=== PATIENT | female | born 1975 | race Asian ===

== ENCOUNTER → 2020-08-13 | Outpatient (CLI) | payer OTHER ==
[2020-08-13 09:05] LABS: ABSOLUTE NEUTROPHILS 2.8 thou/uL (1.4-8.2); BASOPHILS 0.9 % (0.0-2.0); EOSINOPHILS 5.2 % (0.0-3.0); HEMATOCRIT 42.1 % (37.0-47.0); HEMOGLOBIN 13.9 gm/dL (12.0-15.0); LYMPHOCYTES 22.4 % (24.0-44.0); MCH 28.3 pg (26.0-34.0); MCV 85.8 fL (80.0-100.0); MONOCYTES 9.1 % (1.0-8.0); PLATELET COUNT 356 thou/uL (150-400); POLYS 62.4 % (36.0-66.0); RBC 4.91 mil/uL (4.20-5.00); RDW 14.8 % (10.5-14.5); WBC 4.4 thou/uL (4.0-11.0)
[2020-08-13 09:20] LABS: ALBUMIN 4.3 g/dL (3.4-5.0); ANION GAP 9 mmol/L (7-16); BUN 14 mg/dL (7-18); CALCIUM 9.4 mg/dL (8.5-10.1); CHLORIDE 101 mmol/L (98-107); CHOLESTEROL 224 mg/dL (<200); CO2 29 mmol/L (21-32); CREATININE 0.9 mg/dL (0.6-1.0); GLUCOSE 93 mg/dL (74-106); HDL CHOLESTEROL 62 mg/dL (>40); LDL CHOLESTEROL 138 mg/dL (<100); POTASSIUM 4.1 mmol/L (3.5-5.1); SGOT 18 U/L (15-37); SGPT 27 U/L (30-65); SODIUM 139 mmol/L (136-145); TC:HDL 3.6 Ratio (Not establshd); TOTAL BILIRUBIN 0.3 mg/dL (0.2-1.0); TOTAL PROTEIN 8.1 g/dL (6.4-8.2); TRIGLYCERIDE 120 mg/dL (<150); VLDL 24 mg/dL (<40)
[2020-08-13 23:06] LABS: GLYCOHEMOGLOBIN (HGB A1C) 5.6 % (4.8-5.6)
== END ==
LOC: LABMALL 08:03
PROVIDERS: ATTEND Family Medicine
DX: Z01.84 Encounter for antibody response examination (principal); E78.5 Hyperlipidemia, unspecified; E55.9 Vitamin D deficiency, unspecified; R73.9 Hyperglycemia, unspecified

== ENCOUNTER → 2020-09-04 | Outpatient (CLI) | payer OTHER | LOC: LAB 13:19 | DX: Z20.828 Contact with and (suspected) exposure to other viral communicable diseases (principal) ==

== ENCOUNTER → 2020-10-25 | Outpatient (CLI) | payer OTHER ==
[2020-10-25 10:22] LABS: CHOLESTEROL 233 mg/dL (<200); HDL CHOLESTEROL 64 mg/dL (>40); LDL CHOLESTEROL 154 mg/dL (<100); TC:HDL 3.6 Ratio (Not establshd); TRIGLYCERIDE 79 mg/dL (<150); VLDL 16 mg/dL (<40)
== END ==
LOC: LAB 09:30
PROVIDERS: ATTEND Family Medicine
DX: E78.5 Hyperlipidemia, unspecified (principal); E55.9 Vitamin D deficiency, unspecified

== ENCOUNTER → 2020-11-29 | Outpatient (CLI) | payer OTHER ==
[~2020-11-29] MED LIST: ADIPEX-P37.5 M1 PO; AIRBORNE EFFER1 EAC1 PO; BENADRYL25 MG PO; CLINDAGEL75 ML TOP; COLACE100 MG PO; EXCEDRIN CAPLE1 EACH PO; FLEXERIL PO; NAPROXEN CR500 MG PO; OMEPRAZOLE 20 M20 M1 PO; SALONPAS1 EACH TOP; SPIRONOLACTONE100 M1 PO; TRAMADOL 50 MG50 MG PO; TRETINOIN10 MG PO; TRIAMCINOLONE 080 G3 TOP; TUMS SMOOTHIES300 MG PO; VITAMIN D3100 GM PO; ZYRTEC10 M4 PO
== END ==
LOC: MRI 10:38
PROVIDERS: ATTEND Family Medicine
DX: M51.17 Intervertebral disc disorders with radiculopathy, lumbosacral region (principal); M48.061 Spinal stenosis, lumbar region without neurogenic claudication

== ENCOUNTER → 2020-12-01 | Outpatient (CLI) | payer OTHER ==
[~2020-12-01] VITALS: Ht 154.9 cm; Wt 53.5 kg
--- NOTE | ~2020-12-01 | HPC ---
[facility] [place] [address] PAIN MANAGEMENT CONSULTATION Name: JAYLENE HUTTON Room #: REG [facility]#: [id number] Admission: 12/01/20 Attend Phys: Bernard Hernandez DO Discharge: Date of : 75 Report #: [id number] THIS REPORT FOR: cc: Pily Snell MD, Nora P. MD Johnson, James E. DO ~ DATE OF SERVICE: 12/01/2020 CHIEF COMPLAINT: Low back pain, left lower extremity pain. HISTORY OF PRESENT ILLNESS: As you know, the patient is a 45-year-old female with acute onset of low back pain, left lower extremity pain that began on November 21, 2020. The patient indicates no injury or trauma. She apparently has had symptoms like this prior and received injection and physical therapy, which resolved symptoms over a 3-month period. This was apparently some years ago. The patient states that since the pain began, she has been unable to ambulate or go about daily activities. States her pain is intense enough that she has had to discontinue work. She has been referred to our service after undergoing MRI of the lumbar spine, which shows normal findings. The patient reports today pain is constant with brief intermittent, sharp, stabbing and shooting sensations. She describes the pain as shooting, aching, heavy and sharp when describing symptoms. She places current pain score 5/10, daily average anywhere from 3-10/10. The worst pain has been is 10/10. The patient states the pain is exacerbated with movement, standing, and sitting for any length of time, improves with lying down with both knees in a full flexed position as well as the hips in flexed position. She has been referred to our service to discuss treatment options for back pain and left leg pain. PAST MEDICAL HISTORY: 1. Gastroesophageal reflux disease. 2. Seasonal allergies. 3. Osteoarthritis. PAST SURGICAL HISTORY: 1. Bilateral tubal ligation. 2. Orange teeth extractions. 3. PRK, left eye. 4. PRK, right eye. SOCIAL HISTORY: The patient denies tobacco use. Denies IV or illicit drug use. Admits to occasional glass of wine. She is employed as a registered nurse, working at [employer]. She has been off work since her pain began. She is not receiving workmen's compensation, nor is she trying to obtain disability benefits. She reports no ongoing litigation in regards to pain. She is unaccompanied at today's visit. [address] [address] PAIN MANAGEMENT CONSULTATION Name: JAYLENE HUTTON Room #: REG [facility].#: [id number] Admission: 12/01/20 Attend Phys: Bernard Hernandez DO Discharge: Date of : 75 Report #: [id number] REVIEW OF SYSTEMS: Positive for weight change, weakness, headaches, wearing corrective eyewear, blurred and double vision, chronic sinus problems with rhinitis, intermittent nosebleeds, loss of appetite, constipation, rectal bleeding, peptic ulcer disease, frequent and recurrent headaches, varicose veins, numbness and tingling sensations, and bleeding and bruising tendencies. All other review of systems negative per 12-point review of systems other than those listed in history of present illness. Pain impact score 49/70 indicating severe interference of daily activities secondary to pain. IMAGING: MRI of the lumbar spine obtained on 11/29/2020 shows only early degenerative disk changes at L3-L4 and L4-L5, no significant central canal or neural foraminal stenosis or facet arthropathy. PHYSICAL EXAMINATION: VITAL SIGNS: Blood pressure 113/85, pulse 118, respiratory rate 14 and unlabored. The patient is 98% on room air. Height 5 feet 1 inch tall, weight 118 pounds, BMI calculated 22.3. GENERAL: Well-developed, well-nourished, well-hydrated 45-year-old female, who appears stated age, placing current pain score 5/10. HEENT: Normocephalic, atraumatic. Pupils equal, round, and reactive to light. Extraocular muscles are intact. NEUROLOGIC: Speech is fluent. The patient is wearing a mask in compliance with COVID-19 regulations. LUNGS: Appear clear. She has no appreciable rhonchi or rales. No cough. EXTREMITIES: Show no clubbing, no cyanosis, and no edema. MUSCULOSKELETAL: The patient does have palpatory tenderness over the left sacroiliac joint. Deep palpation in the area causes intensification of pain. The patient does have a leg-length discrepancy of approximately one-quarter of an inch with right leg longer than left. Compression of the ASIS on the right causes no change in pain. Compression on the ASIS on the left causes intensification of pain over the SI joint. The patient is intact to light touch from L1 through S2 dermatomes. Seated straight leg raising negative. Supine straight leg raising negative. Lacie's test is positive only for SI joint dysfunction on the left, negative right. Ankle clonus negative. Babinski is negative. Muscle bulk and tone is symmetrical, 5/5 in the lower extremities. There is some give-way strength noted with hip flexion and knee extension on the left due to pain generation, but muscle contraction is 5/5. Deep tendon reflexes equal and symmetrical at patella and Achilles. Gait is antalgic favoring the left lower extremity. ASSESSMENT: 1. Left sacroiliac joint pain. 2. Myofascial pain. [facility] [address] [place] [address] PAIN MANAGEMENT CONSULTATION Name: HUTTONJAYLENE MCMAHON LESLEY Room #: REG [facility]#: [id number] Admission: 12/01/20 Attend Phys: Bernard Hernandez DO Discharge: Date of : 75 Report #: [id number] PLAN: Based on today's physical exam, the history the patient has provided, the description the patient uses in regards to pain as well as the location of symptoms, the likely source of the patient's symptoms is the left sacroiliac joint. Her pain distribution matches exactly the distribution of an SI joint dysfunction with radiation from the SI joint to the posterolateral thigh with some sensations that radiate towards the foot in a nondermatomal distribution consistent with SI joint dysfunction. We reviewed with the patient the findings of her MRI, which show normal study for a 45-year-old female. There is no neural foraminal stenosis and no facet arthropathy. Given the normal MRI of the lumbar spine, this would further confirm SI joint dysfunction as the source of symptoms. We discussed with the patient the treatment options for SI joint pain today. The following was discussed with the patient. 1. We discussed physical therapy, stretching exercises, and manipulation of the pelvis and SI joint for improved analgesic benefit. We discussed medication management with suggestion of treatment including nonsteroidal anti-inflammatories on a consistent basis along with low-dose pain relievers. We discussed intra-articular SI joint injection and ultimately surgical fusion of the SI joint. After reviewing the risks and benefits of all proposed treatment options, the patient chose to move forward with conservative treatment and undergo pelvic manipulation and SI joint treatments with physical therapy. 2. The patient will be sent for physical therapy. She will begin at least twice to three times a week for approximately 6 weeks. She was given the names of 2 different facilities that provide sacroiliac joint manipulation. We contacted the physical therapy group here with [facility] and they do not offer this treatment option, which in this patient's case needs to be directed directly at the SI joint and thus needs to be referred to an outside facility. The patient was given the referral information to these 2 facilities that perform SI joint and pelvic manipulation to address sacroiliac joint pain. 3. We made no changes in the patient's medication management. We recommend that she continue current medical therapy being provided through her prescribing physician. We will suggest changes, if necessary, to address the ongoing issues if symptoms do not resolve quickly with more conservative treatment. 4. We will begin the process of authorization for the patient to undergo an SI joint injection if she is not seeing pain improvement with the sacroiliac joint manipulation recommended above. Authorization could take 4-7 working days. We will begin this process immediately. Once we have the authorization, we will contact the patient. If she wishes to undergo SI joint injection, we will be more than willing to provide that injection with the understanding that it is a treatment to be in conjunction with SI joint manipulation and treatment for the pelvic unleveling. We will begin the process immediately and contact the patient once this authorization has been obtained. 5. We wish to thank the referring physician, Dr. Pily Snell, for the opportunity to see this patient in consultation. We will keep you apprised of response to treatment as we address sacroiliac joint pain on the left side. [facility] [address] [place] [address] PAIN MANAGEMENT CONSULTATION Name: JAYLENE HUTTON Room #: REG [facility] Mayra#: [id number] Admission: 12/01/20 Attend Phys: Bernard Hernandez DO Discharge: Date of : 75 Report #: [id number] Again, we wish to thank you for the opportunity to see the patient in consultation. By: [id number] [id number] Bernard Hernandez DO /nt
[2020-12-01 13:16] VITALS: BP 113/85
--- NOTE | 2020-12-01 13:36 | NUR ---
Pain Clinic Assessment: 1. History of Osteoarthritis: NO History of Rheumatoid Arthritis: NO 2. Height: 5 ft. 1 in. 154.9 cm. Weight: 118.0 lb. oz. 53.524 kg. Patient's BMI: 22.3 3. Vital Signs: BP: 113/85 Pulse: 118 Resp: 14 Temp: 02 Sat: 98 ECG Mon: 4. Pain Intensity: 5 5. Fall Risk: Dizziness: Needs help standing or walking: Fallen in the last 3 months: Fall risk comments: 6. Patient on Blood Thinner: None 7. History of Hypertension: N 8. Opioid Therapy greater than 6 weeks: N Opiate Contract Signed: 9. Risk Assessment Tool Provided: 10. Functional Assessment Tool: 11. Recreational Drug Use: Never Drug Type: Tobacco Use: Never Smoker Tobacco Type: Amount or Packs/day: How Many Years: Alcohol Use: Yes Frequency: Weekly Quant:
== END ==
LOC: PAIN 06:53
PROVIDERS: ATTEND Anesthesiology Pain Medicine
DX: M54.5 Low back pain (principal); M79.605 Pain in left leg; M79.10 Myalgia, unspecified site

== ENCOUNTER → 2021-01-05 | Outpatient (CLI) | payer OTHER ==
[~2021-01-05] VITALS: Ht 154.9 cm; Wt 54.0 kg
[~2021-01-05] MED LIST changes: +GABAPENTIN100 MG PO; +SKELAXIN 800 M800 M1 PO
[2021-01-05 12:54] VITALS: BP 123/54
--- NOTE | 2021-01-05 13:04 | NUR ---
Pain Clinic Assessment: 1. History of Osteoarthritis: NO History of Rheumatoid Arthritis: NO 2. Height: 5 ft. 1 in. 154.9 cm. Weight: 119.0 lb. oz. 53.978 kg. Patient's BMI: 22.5 3. Vital Signs: BP: 123/54 Pulse: 110 Resp: 14 Temp: 02 Sat: 100 ECG Mon: 4. Pain Intensity: 6 5. Fall Risk: Dizziness: N Needs help standing or walking: N Fallen in the last 3 months: N Fall risk comments: 6. Patient on Blood Thinner: None 7. History of Hypertension: N 8. Opioid Therapy greater than 6 weeks: N Opiate Contract Signed: 9. Risk Assessment Tool Provided: 10. Functional Assessment Tool: 11. Recreational Drug Use: Never Drug Type: Tobacco Use: Never Smoker Tobacco Type: Amount or Packs/day: How Many Years: Alcohol Use: Yes Frequency: Quant:
--- NOTE | 2021-01-11 08:45 | HPC ---
[facility] [place] [address] [address] [place] [address] PAIN MANAGEMENT CONSULTATION Name: JAYLENE HUTTON Room #: REG [facility]#: [id number] Admission: 01/05/21 Attend Phys: Bernard Hernandez DO Discharge: Date of : 75 Report #: [id number] THIS REPORT FOR: cc: Pily Snell MD, Nora P. MD Johnson, James E. DO ~ DATE OF SERVICE: 01/05/2021 CHIEF COMPLAINT: Low back pain, left buttock and posterolateral thigh pain. HISTORY OF PRESENT ILLNESS: As you know, the patient is a 45-year-old female with acute onset of low back pain, left lower extremity pain without paresthesias that began 11/21/2020. She denies any specific injury or trauma. She was seen in consultation per the request of her primary care physician, Dr. Pily Snell. On 12/01/2020, diagnosed with left sacroiliac joint pain and established today's appointment to undergo a left SI joint injection under fluoroscopic guidance. We have received authorization through the patient's third alliance party payer to undergo a left SI joint injection to address ongoing pain. The patient returns today with a pain level of 6/10. Pain is exacerbated with standing and sitting, improves with rest and relaxation. She returns today for the first in series of left SI joint injections under fluoroscopic guidance. ALLERGIES: SULFA AND SHELLFISH. CURRENT MEDICATIONS: See extensive list in chart. SOCIAL HISTORY: The patient denies tobacco use. Denies IV or illicit drug use. Admits to occasional alcohol. 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 IMAGING: No new imaging available. PHYSICAL EXAMINATION: VITAL SIGNS: Blood pressure 123/54, pulse 110, respiratory rate 14 and unlabored. The patient is 100% on room air. Height 5 feet 1 inch tall, weight 119 pounds, BMI calculated 22.5. GENERAL: Well-developed, well-nourished, well-hydrated 45-year-old female appearing stated age, pain is rated around 6/10. HEENT: Normocephalic, atraumatic. Pupils equal, round and reactive, the patient is wearing a mask in compliance with COVID-19 regulations. EXTREMITIES: Show no clubbing, no cyanosis, no edema. MUSCULOSKELETAL: The patient once again has significant palpatory tenderness over the left SI joint, negative on the right. Deep palpation of this area causes intensification of pain with the patient's distribution radiating down the leg in classic SI joint fashion. Seated straight leg raising is negative. Supine straight leg raising is negative. Lacie's test is positive only for SI [facility] [address] [place] [address] PAIN MANAGEMENT CONSULTATION Name: HUTTONJAYLENE LISANDRO LESLEY [id number] Admission: 01/05/21 Attend Phys: Bernard Hernandez DO Discharge: Date of : 75 Report #: [id number] joint dysfunction, negative for any intrinsic hip pathology. ASSESSMENT: 1. Left sacroiliac joint pain. 2. Myofascial pain. PLAN: 1. The patient has returned today in followup visit to undergo SI joint injection under fluoroscopic guidance. We have received authorization for the patient to undergo the procedure. The patient has been advised of the risks and the benefits of a left SI joint injection. These risks include but are not necessarily limited to bleeding, bruising, infection, worsening pain, no relief of pain, also risk of temporary or permanent muscle weakness, temporary or permanent nerve damage, possible paralysis, post-dural puncture headache and . The patient states understood and wished to proceed. 2. No medication changes made at today's visit. The patient will continue current medical therapy as prior prescribed. 3. We plan to see the patient back in followup visit in approximately 30 days. At that time, review the efficacy of today's left SI joint injection and determine if next in the series would be recommended. PROCEDURE NOTE DESCRIPTION OF PROCEDURE: Left sacroiliac joint injection under fluoroscopic guidance. After obtaining written consent, the patient was taken back to fluoroscopy suite, placed in prone position with pillow under abdomen to decrease lumbar lordosis. Skin overlying the gluteal sacral area on the left side was prepped and draped in aseptic fashion. A medial to lateral oblique projection allowed separation of the anterior and posterior branches of the joint space to be visualized. The skin and subcutaneous tissue overlying target site of injection was anesthetized with 3 mL of 1% lidocaine utilizing a 27-gauge 1-1/4 inch needle. A 22-gauge 3-1/2 inch spinal needle with bent tip was directed to the inferior aspect of the sacroiliac joint using a posterior approach. A "giving away" at the needle hub was noted once the dorsal sacroiliac and interosseous ligaments were engaged. Due to a contrast allergy, no contrast agent was used in today's procedure. After negative aspiration for heme and confirmation of needle position with lateral fluoroscopic imaging, 3 mL of a solution containing 1 mL 40 mg per mL, 40 mg total triamcinolone along with 2 mL bupivacaine 0.5% was injected slowly. Needle was retracted approximately half way, flushed with 1 mL of 1% lidocaine and removed. Sterile bandage placed over injection site. There were no new motor deficits present in the lower extremities following procedure. [facility] [address] [place] [address] PAIN MANAGEMENT CONSULTATION Name: JAYLENE HUTTON LISANDRONicole SUTTON [id number] Admission: 01/05/21 Attend Phys: Bernard Hernandez DO Discharge: Date of : 75 Report #: [id number] The patient tolerated procedure well, carefully escorted to recovery room in stable condition. No apparent complications. VAS before procedure rated at 6/10, VAS 10 minutes after procedure 0/10. After meeting our discharge criteria, the patient discharged home. <ELECTRONICALLY SIGNED> By: Bernard Hernandez DO 01/11/21 0845 [id number] 1804 Bernard Hernandez DO /nt
== END | disposition home or self-care (01) ==
LOC: PAIN 12-14 09:33
PROVIDERS: ATTEND Anesthesiology Pain Medicine
DX: M53.3 Sacrococcygeal disorders, not elsewhere classified (principal); M79.18 Myalgia, other site; Z98.890 Other specified postprocedural states; Z79.899 Other long term (current) drug therapy; Z88.2 Allergy status to sulfonamides; Z88.8 Allergy status to other drugs, medicaments and biological substances

== ENCOUNTER → 2021-02-08 | Outpatient (CLI) | payer OTHER ==
[~2021-02-08] VITALS: Ht 154.9 cm; Wt 52.2 kg
[~2021-02-08] MED LIST changes: +ALLEGRA-D 24 H1 EACH PO; +BETAMETHASONE D50 G2 TOP; +GRALISE300 MG PO
[2021-02-08 12:49] VITALS: BP 128/62
--- NOTE | 2021-02-08 13:02 | NUR ---
Pain Clinic Assessment: 1. History of Osteoarthritis: NO History of Rheumatoid Arthritis: NO 2. Height: 5 ft. 1 in. 154.9 cm. Weight: 115.0 lb. oz. 52.164 kg. Patient's BMI: 21.7 3. Vital Signs: BP: 128/62 Pulse: 118 Resp: 16 Temp: 02 Sat: 99 ECG Mon: 4. Pain Intensity: 6 5. Fall Risk: Dizziness: Needs help standing or walking: Fallen in the last 3 months: Fall risk comments: 6. Patient on Blood Thinner: None 7. History of Hypertension: N 8. Opioid Therapy greater than 6 weeks: N Opiate Contract Signed: 9. Risk Assessment Tool Provided: 10. Functional Assessment Tool: 11. Recreational Drug Use: Never Drug Type: Tobacco Use: Never Smoker Tobacco Type: Amount or Packs/day: How Many Years: Alcohol Use: Yes Frequency: Quant:
--- NOTE | 2021-02-09 07:28 | HPC ---
[facility] [place] [address] PAIN MANAGEMENT CONSULTATION Name: JAYLENE HUTTON Room #: REG [facility]#: [id number] Admission: 02/08/21 Attend Phys: Bernard Hernandez DO Discharge: Date of : 75 Report #: [id number] THIS REPORT FOR: cc: Pily Snell MD, Nora P. MD Johnson, James E. DO ~ DATE OF SERVICE: 02/08/2021 REFERRING PHYSICIAN: Pily Snell MD CHIEF COMPLAINT: Low back and left buttock and posterolateral thigh pain. HISTORY OF PRESENT ILLNESS: As you know, the patient is a 45-year-old female with acute onset of low back pain, left lower extremity pain and buttock pain that began 11/21/2020. Denied any specific injury or trauma. The patient was seen in consultation per the request of Dr. Pily Snell on 12/01/2020, diagnosed with left sacroiliac joint pain. She underwent an SI joint injection on 01/05/2021 with improvement in symptoms of 75%. Unfortunately, her symptoms have begun to return. She is now placing pain score at 6/10. She is reporting no pain in the left lower at this time. She is experiencing mainly left buttock and low back pain. She is complaining of right hip pain, but has yet to discuss this with the referring physician. It would appear that she is suffering from some compensatory discomfort. She returns today in followup visit for the second in series of SI joint injections. ALLERGIES: SULFA and SHELLFISH. CURRENT MEDICATIONS: See extensive list in chart. SOCIAL HISTORY: The patient denies tobacco. Denies IV or illicit drug use. Admits to occasional alcohol beverage. 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 IMAGING: No new imaging available. PHYSICAL EXAMINATION: VITAL SIGNS: Blood pressure 128/62, pulse of 118, respiratory rate 16 and unlabored. The patient is 99% on room air. Height 5 feet 1 inch tall, weight 115 pounds, BMI calculated 21.7. GENERAL: Well-developed, well-nourished, well-hydrated 45-year-old female, appearing stated age, pain is rated today 6/10. HEENT: Normocephalic, atraumatic. Pupils are equal and round. Extraocular muscles are intact. She is wearing a mask in compliance with COVID-19 regulations. EXTREMITIES: Show no clubbing, no cyanosis, no appreciable edema. MUSCULOSKELETAL: Again, the patient has tenderness to palpation over the left [address] [address] PAIN MANAGEMENT CONSULTATION Name: BRENNENJAYLENE MCMAHON LESLEY Room #: [facility]#: [id number] Admission: 02/08/21 Attend Phys: Bernard Hernandez DO Discharge: Date of : 75 Report #: [id number] SI joint, negative right. Seated straight leg raising negative. Supine straight leg raising negative. Jefry's test positive on the left. Lacie's test is positive for SI joint dysfunction on the left, negative for right. Stance is normal. Pain is elicited, both on the left and right with standing from a seated position. ASSESSMENT: 1. Left sacroiliac joint pain. 2. Right hip pain. 3. Myofascial pain. PLAN: 1. The patient returns today in followup visit reporting excellent benefit with sacroiliac joint injection provided at our last visit. She has had complete resolution of the left lower extremity pain that she had prior. She is now experiencing low back and the left buttock pain consistent with sacroiliac joint. We have consented and we will perform a left sacroiliac joint injection under fluoroscopic guidance today. The patient was advised risks and benefits of the procedure, states understood and wished to proceed. 2. The patient is complaining of ongoing right hip pain. I do feel that further workup with her primary would be appropriate. We did do fluoroscopic x-ray imaging today. There are no concerning findings in the hip. Conservative treatment would be recommended. If further evaluation is necessary, the patient will be following up with PCP to discuss this imaging if necessary. Given the minimal findings on physical exam, I do not feel that this is anything more than compensatory exacerbation of chronic mild arthritic changes. 3. No medication changes made at today's visit. The patient will continue current medical therapy as prior prescribed. 4. We will see the patient back in followup visit on an as needed basis. We did discuss that if her symptoms do not improve with injection therapies for consistent and prolonged amount of time, we would recommend surgical fusion. This could be done with Dr. Pena here at [facility]. PROCEDURE NOTE DESCRIPTION OF PROCEDURE: Left sacroiliac joint injection under fluoroscopic guidance. After obtaining written consent, the patient was taken back to fluoroscopy suite, placed in prone position with pillow under abdomen to decrease lumbar lordosis. Skin overlying the gluteal sacral area of the left side was then prepped and draped in aseptic fashion. A medial to lateral oblique projection allowed separation of the anterior and posterior branches of the joint space to be visualized. Skin and subcutaneous tissue overlying target site injection was anesthetized with 3 mL of 1% lidocaine utilizing a 27-gauge 1-1/[address] [address] PAIN MANAGEMENT CONSULTATION Name: JAYLENE HUTTON LESLEY Room #: [facility]#: [id number] Admission: 02/08/21 Attend Phys: Bernard Hernandez DO Discharge: Date of : 75 Report #: [id number] A 22-gauge 3-1/2 inch spinal needle with bent tip was advanced towards the inferior aspect of the sacroiliac joint on the left using a posterior approach. A "giving away" at the needle hub was noted once the dorsal sacroiliac and interosseous ligaments were engaged. Due to a contrast allergy, no contrast agent was used in today's procedure. After negative aspiration for heme and confirmation of needle position with lateral fluoroscopic imaging, 3 mL of a solution containing 1 mL 40 mg per mL, 40 mg total triamcinolone along with 2 mL bupivacaine 0.5% injected slowly. Needle retracted group home, flushed with 1 mL of 1% lidocaine and removed. Sterile bandage placed over injection site. No new motor deficits present in lower extremity following procedure. The patient tolerated procedure well, carefully escorted to recovery room in stable condition. No apparent complications. VAS before procedure rated at 6/10, VAS 10 minutes after procedure 0/10. After meeting our discharge criteria, the patient discharged home. <ELECTRONICALLY SIGNED> By: Bernard Hernandez DO 02/09/21 [id number] Bernard Hernandez DO /radha
== END ==
LOC: PAIN 06:59
PROVIDERS: ATTEND Anesthesiology Pain Medicine
DX: M53.3 Sacrococcygeal disorders, not elsewhere classified (principal); M54.5 Low back pain; M25.551 Pain in right hip; Z79.899 Other long term (current) drug therapy; Z88.2 Allergy status to sulfonamides; Z91.013 Allergy to seafood

== ENCOUNTER → 2021-03-25 | Outpatient (CLI) | payer OTHER ==
[2021-03-25 11:17] LABS: URINE BILIRUBIN NEGATIVE (Negative); URINE BLOOD NEGATIVE (Negative); URINE CLARITY CLEAR; URINE GLUCOSE-RANDOM* NEGATIVE (Negative); URINE KETONES 1+ (Negative); URINE LEUKOCYTES-REFLEX NEGATIVE (Negative); URINE PROTEIN (DIPSTICK) NEGATIVE (Negative); URINE UROBILINOGEN 0.2 E.U./dl (0.2-1.0)
[2021-03-25 11:18] LABS: URINE COLOR AMBER; URINE NITRITE-REFLEX POSITIVE (Negative)
[2021-03-25 11:20] LABS: ABSOLUTE NEUTROPHILS 5.8 thou/uL (1.4-8.2); BASOPHILS 0.5 % (0.0-2.0); EOSINOPHILS 0.3 % (0.0-3.0); HEMATOCRIT 43.6 % (37.0-47.0); HEMOGLOBIN 14.5 gm/dL (12.0-15.0); LYMPHOCYTES 10.4 % (24.0-44.0); MCH 30.1 pg (26.0-34.0); MCHC 33.3 g/dL (28.0-37.0); MCV 90.2 fL (80.0-100.0); MONOCYTES 7.1 % (1.0-8.0); PLATELET COUNT 400 thou/uL (150-400); POLYS 81.7 % (36.0-66.0); RBC 4.83 mil/uL (4.20-5.00); RDW 14.4 % (10.5-14.5)
[2021-03-25 11:28] LABS: CASTS None Seen /LPF (None Seen); MUCUS >6 Heavy strn/LPF (None Seen); SQUAMOUS 4-10 Moderate /LPF (0-3)
[2021-03-25 11:29] LABS: URINE WBC-REFLEX 0-5 Rare /HPF (0-5)
[2021-03-25 11:30] LABS: CRYSTALS None Seen /LPF (None Seen); URINE RBC None Seen /HPF (NONE SEEN)
[2021-03-25 11:57] LABS: ALBUMIN 4.5 g/dL (3.4-5.0); CREATININE 0.9 mg/dL (0.6-1.0); POTASSIUM 4.4 mmol/L (3.5-5.1); TOTAL BILIRUBIN 0.5 mg/dL (0.2-1.0); TOTAL PROTEIN 8.2 g/dL (6.4-8.2)
[2021-03-28 16:06] LABS: ANA INTERPRETATION Negative (())
== END ==
LOC: LAB 10:07
PROVIDERS: ATTEND Allergy & Immunology Allergy
DX: L50.0 Allergic urticaria (principal)

== ENCOUNTER → 2021-06-10 | Outpatient (CLI) | payer OTHER | LOC: MRI 08:23 | PROVIDERS: ATTEND Family Medicine | DX: M25.852 Other specified joint disorders, left hip (principal); M51.37 Other intervertebral disc degeneration, lumbosacral region; M25.552 Pain in left hip ==